=== PATIENT | female | born 1975 | race Caucasian/White ===

== ENCOUNTER 2025-02-10 15:56 | Outpatient (CLI) | payer OTHER, SELFPAY ==
--- NOTE | ~2025-02-10 | MR_ITS ---
MRI of the left knee Clinical history: Pain Technique: Coronal proton density and proton density-weighted images, sagittal proton-density and T2 fat-sat images, and axial proton-density fat-saturated images were acquired. Findings: Anterior and posterior cruciate ligaments are intact. Medial collateral ligament and the la teral collateral ligament, posterior intact. Popliteus tendon is intact. Medial and lateral menisci are intact, without evidence of tear. There is a fracture of the lateral tibial plateau, with approximately 1 mm of depression, with extens asmita surrounding marrow edema. 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 Светлана ining articular cartilage is relatively well-preserved. Extensor mechanism is intact. Small joint effusion. No Koch's cyst. Impression: Lateral tibial plateau fracture, as above, most compatible with Schatzker type 3 fracture. 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 Reviewed, dictated and finalized at [facility]. Impression: Lateral tibial plateau fracture, as above, most compatible with Schatzker type 3 fracture. 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
== END 2025-02-10 15:57 | disposition home or self-care (01) ==
LOC: MICIMG 15:57
PROVIDERS: PCP Nurse Practitioner; Visit Provider Nurse Practitioner
DX: S82.142A Displaced bicondylar fracture of left tibia, initial encounter for closed fracture (principal); X58.XXXA Exposure to other specified factors, initial encounter
CPT/HCPCS: 73721